=== PATIENT | male | born 1995 ===

== ENCOUNTER 2024-06-20 19:52 | Emergency (ER) | payer BC, OTHER ==
[~2024-06-20] VITALS: Ht 180.3 cm; Wt 87.0 kg
[2024-06-20 20:02] VITALS: BP 124/72; PULSE 64; RESP 18; O2SAT 99
[2024-06-20] MEDS ORDERED: NO HOME MEDS (21:00)
[2024-06-20] MEDS: TETanus/Pertussis (Acell)/Diphther VAC/PF (Tdap-Adult) 0.5ml syringe IMVAC ONE (22:02)
[2024-06-20] MEDS ORDERED: AMOX-580 PO (22:51)
[2024-06-20 22:56] VITALS: TEMP 98.3
== END 2024-06-20 23:04 | disposition home or self-care (01) ==
LOC: ER 19:54
DX: S61.213A Laceration without foreign body of left middle finger without damage to nail, initial encounter (principal); Z79.2 Long term (current) use of antibiotics; W54.0XXA Bitten by dog, initial encounter; Y93.89 Activity, other specified; Y92.89 Other specified places as the place of occurrence of the external cause; Y99.8 Other external cause status
CPT/HCPCS: 90471; 90715; 99283; A6258; A6449